=== PATIENT | male | born 1945 | race Caucasian/White ===

== ENCOUNTER 2017-07-02 09:54 | Day surgery (SDC) | payer MEDICARE ==
[2017-07-02] VITALS (8 sets, daily range): BP systolic 99–162; BP diastolic 53–87; PULSE 60–66; RESP 18–20; TEMP 97.5–97.6; O2SAT 95–98
[~2017-07-02] VITALS: Ht 165.1 cm; Wt 72.7 kg
[2017-07-02] MEDS ORDERED: LIDOCAINE HCL 1% 20 ML VIAL SQ ONE (09:55)
[2017-07-02] MEDS ORDERED: MULT-65 PO (10:20)
[2017-07-02] MEDS ORDERED: AMLO5TAB2 PO (10:20)
[2017-07-02] MEDS ORDERED: ASPI81CH CHEW (10:20)
[2017-07-02] MEDS ORDERED: VITA200C3 PO (10:20)
[2017-07-02] MEDS ORDERED: VITA500T83 PO (10:20)
[2017-07-02] MEDS ORDERED: VITA10002 PO (10:20)
[2017-07-02] MEDS ORDERED: METO50TA PO (10:20)
[2017-07-02] MEDS ORDERED: SODIUM CHLOR 0.9% 1000 ML IV SCH (10:30)
[2017-07-02] MEDS ORDERED: MIDAZOLAM HCL 5 MG/5 ML VIAL ONE (11:36)
--- NOTE | 2017-07-02 12:12 | PD.RAD ---
Post CT Procedure Prog Note Pre Procedure Diagnosis: (1) Hemochromatosis Post Procedure Diagnosis: (1) Hemochromatosis Procedure Date: Jul 02, 2017 Supervising Radiologist: Neto Pritchard Anesthesia: Conscious Sedation Plan of Activity Patient to Unit: [facility] Patient Condition: Good Additional Comments: right liver lobe biopsy See PACS Report for procedural detail/treatment Neto Pritchard MD Jul 02, 2017 12:11 pm
[2017-07-02] MEDS ORDERED: HYDROmorphone HCL 2 MG TAB PO PRN (13:00)
--- NOTE | 2017-07-02 13:02 | RADRPT ---
EXAM DATE/TIME: 07/02/2017 11:41 [place] COMPARISON: No previous studies available for comparison. INDICATIONS : Hemochromatosis. SEDATION TIME: 15 minutes BIOPSY SITE: Liver MEDICATION(S): 1.) 2 mg midazolam (Versed) IV 2.) 100 mcg fentanyl (Sublimaze) IV DEVICE(S): 1.) 17 gauge Temno core biopsy needle 2.) 18 gauge Temno core biopsy needle MEDICAL HISTORY : Hypertension. SURGICAL HISTORY : None. ENCOUNTER: Initial ACUITY: 1 day PAIN SCORE: 0/10 LOCATION: liver A total of three core specimen(s) were obtained and sent to the laboratory for pathologic evaluation. PROCEDURE: 1. CT guided liver biopsy. 2. Conscious sedation with continuous EKG and oximetry monitoring. 3. EKG and oximetry remained stable throughout the procedure. Prior to the procedure informed consent was obtained. Any appropriate prior imaging studies were rev iewed. Using automated exposure control and adjustment of the mA and/or kV according to patient size, radiat ion dose was kept as low as reasonably achievable to obtain optimal diagnostic quality images. DICOM format image data is available electronically for review and comparison. The site was prepped in a sterile fashion. Full sterile technique was used, including cap, mask, philippe rile gloves and gown and a large sterile sheet. Hand hygiene and 2% chlorhexidine and/or betadine/al cohol prep was utilized per protocol for cutaneous antisepsis. The skin and subcutaneous tissues wer e infiltrated with local anesthetic solution. With CT guidance the previously identified target was localized. Biopsy was performed using the presc ribed needle as above. Adequate hemostasis was obtained with compression at the puncture site. Follow-up CT scan reveals no hemorrhage. The patient tolerated the procedure well and there were no complications. The patient was returned to the Radiology Outpatient Unit in stable condition. CONCLUSION: Uncomplicated CT guided biopsy. Neto Pritchard MD on July 02, 2017 at 13:01 Board Certified Radiologist. This report was verified electronically.
== END 2017-07-02 16:25 | disposition home or self-care (01) ==
LOC: HRAD 09:54 → HRIP 09:57 → HRAD 16:25
PROVIDERS: ATTEND Internal Medicine Gastroenterology
DX: E83.110 Hereditary hemochromatosis (principal); I10 Essential (primary) hypertension
CPT/HCPCS: 47000; 77012; 83540; 88307; 88313; J2250; J3010